=== PATIENT | male | born 1980 | race Caucasian/White ===

== ENCOUNTER 2020-11-29 08:07 | Outpatient (RCR) | payer OTHER, SELFPAY | END 2021-01-22 23:59 | LOC: IMMUN 08:07 | PROVIDERS: Referring Provider Family Medicine; Visit Provider Family Medicine | DX: Z23 Encounter for immunization (principal) | CPT/HCPCS: 0001A; 0002A; 91300 ==

== ENCOUNTER 2023-01-13 10:01 | Emergency (ER) | payer BC, SELFPAY ==
[2023-01-13 10:02] VITALS: BP 166/118; PULSE 87; RESP 14; TEMP 36.3; O2SAT 97
[2023-01-13 10:03] VITALS: BMI 35.2
--- NOTE | 2023-01-13 10:14 | CT_ITS ---
EXAM: CT ABDOMEN AND PELVIS WITHOUT INTRAVENOUS CONTRAST CLINICAL INDICATION: Left lower quadrant abdominal pain. TECHNIQUE: Helically acquired images were obtained of the abdomen and pelvis without intravenous contrast. This CT exam was performed using one or more of the following dose reduction techniques: automated exposure control, adjustment of the mA and/or kV according to patient size, and/or use of iterative reconstruction technique. RADIATION DOSE: CTDIvol = 22.72 mGy, DLP = 1209.02 mGy-cm COMPARISON: CT abdomen and pelvis without contrast. FINDINGS: LOWER THORAX: Unremarkable. Lung bases are clear. No cardiomegaly. No significant pericardial effusion. ABDOMEN: LIVER: Moderate diffuse fatty infiltration of the liver, previously mild. GALLBLADDER AND BILE DUCTS: Unremarkable. No calcified gallstones. No gallbladder distention or wall edema. No intra- or extrahepatic biliary ductal dilation. PANCREAS: Unremarkable. No focal cystic mass. SPLEEN: Unremarkable. Normal size without focal cystic or solid mass. ADRENALS: Unremarkable. No nodules. KIDNEYS AND URETERS: 2 mm nonobstructing stone in the left lower renal pole is unchanged. Normal kidneys. STOMACH AND BOWEL: with haziness of the posterior pericolic fat consistent with mild acute diverticulitis. Few diverticula in the sigmoid colon in the left lower abdomen/upper pelvis. No stomach or bowel distention. PELVIS: APPENDIX: Normal. BLADDER: Unremarkable. REPRODUCTIVE: Unremarkable as visualized. No mass. ABDOMEN and PELVIS: INTRAPERITONEAL SPACE: Unremarkable. No ascites or other fluid collection. No free air. BONES/JOINTS: Unremarkable. No suspicious lytic or blastic abnormality. SOFT TISSUES: Unremarkable. No discrete abdominal or pelvic wall hernia. VASCULATURE: Unremarkable. Abdominal aorta is non-dilated. LYMPH NODES: Unremarkable. No enlarged lymph nodes. CT/Abdomen/Pelvis without Cont IMPRESSION: 1. Mild acute diverticulitis of the sigmoid colon in the left lower abdomen/upper pelvis. 2. 2 mm nonobstructing stone in the left lower renal pole is unchanged. 3. Moderate hepatic steatosis, previously mild. Electronically Signed: Jaylen Santiago MD at 12:03 EDT ,
--- NOTE | 2023-01-13 10:14 | ED.VIS.GI ---
HPI HPI - GI History of Present Illness Chief Complaint: Abd Pain Detail of Chief Complaint: Abdominal pain Informant: patient Abdominal Pain/Flank Pain Current Severity: 01/24 Narrative Narrative: Patient presents to the emergency department complaint of abdominal pain that started yesterday. Patient rates it about a 6 out of 10 and in all of the left lower quadrant. Pain worse with movement. Patient tells me that about 7 years ago he had an episode of diverticulitis. He has never had a kidney stone. No history of colonoscopy. Patient states he has had some nausea and vomiting this morning and a few episodes of diarrhea over the last 2 days. He denies blood in his stool or black tarry stool. Patient denies urinary symptoms. Prior similar symptoms: Yes PFSH [facility] Medical History (Updated 01/13/23 @ 12:[address] Ximena Garcia DO) Diverticula of intestine Home Medications ciprofloxacin HCl 500 mg tablet 500 mg PO BID ##20 07/18/16 [Rx Last Taken Unknown] metronidazole 500 mg tablet 500 mg PO Q8 #30 tabs 07/18/16 [Rx Last Taken Unknown] oxycodone-acetaminophen 5 mg-325 mg tablet 1 - 2 tab PO Q4H PRN PRN Pain #20 tabs 07/18/16 [Rx Last Taken Unknown] ciprofloxacin HCl 500 mg tablet 500 mg PO BID #20 TABLETS 01/13/23 [Rx Last Taken Unknown] hydrocodone-acetaminophen 5-325mg 5mg-325mg 1 tab PO Q4H PRN PRN Pain 2 days #10 TABLETS 01/13/23 [Rx Last Taken Unknown] metronidazole 500 mg tablet 500 mg PO Q8H #30 tabs 01/13/23 [Rx Last Taken Unknown] Allergy/AdvReac Type Severity Reaction Status Date / Time No Known Allergies Allergy Verified 09/24/15 14:47 Social History Smoking Status: Never smoker ROS ROS ED Review of Systems ROS Unobtainable: other Constitutional Constitutional ED: Reports lethargy; Denies chills, fever(s), sweats or weight loss Eyes Eyes: Denies blurry vision, change in vision or diplopia ENT ENT ED: Denies rhinorrhea or sore throat Cardiovascular Cardiovascular: Denies chest pain, orthopnea or racing heartbeat Respiratory/Chest Respiratory/Chest: Denies cough, dyspnea, dyspnea on exertion, orthopnea or sputum Gastrointestinal Gastrointestinal: Reports abdominal pain, diarrhea, nausea and vomiting Genitourinary Genitourinary ED: Denies dysuria, hematuria or urinary frequency Musculoskeletal Musculoskeletal: Denies arthralgias, back pain, myalgias or neck pain Integumentary Denies abscess, Abrasions or rash Neurologic Neurologic: Denies headache(s) or weakness Psychiatric Psychiatric: Denies anxiety, depression or suicidal thoughts Endocrine Endocrinology: Denies polydipsia, polyphagia or polyuria Hematologic/Lymphatic Hematologic/Lymphatic: Denies easy bleeding, easy bruising or lymphadenopathy Allergic/Immunologic Allergic/Immunologic ED: Denies mouth swelling, tongue swelling or urticaria EXAM Physical Exam Const Vital Signs: 01/13/23 10:02 Temperature 97.4 F L Temperature Source Temporal Pulse Rate 87 Respiratory Rate 14 Blood Pressure 166/118 H Blood Pressure Mean 134 Pulse Ox 97 Oxygen Delivery Method Room Air Positive well nourished and well developed General Appearance ED: well developed and NAD HEENT Reports TM's clear and moist mucous membranes normocephalic and atraumatic; Negative for trauma or tenderness Tympanic Membrane ED: Yes TM's clear Eyes PERRL and EOMs intact bilaterally General Eye ED: Negative for pale conjunctiva or scleral icterus Neck no lymphadenopathy, supple and no JVD General: Negative for tenderness Chest Wall inspection of chest normal and palpation of chest normal Chest: Negative for tenderness Resp normal respiratory effort and clear to auscultation bilaterally Effort and Inspection: Negative for respiratory distress or pain with movement Auscultation: Negative for rhonchi, wheezes or diminished lung sounds Cardio regular rate, regular rhythm, S1 normal heart sound, S2 normal heart sound and no murmurs Peripheral Pulses: pulses 2+ throughout GI normal to inspection, nondistended, normoactive bowel sounds, soft to palpation, non-distended and no masses GI Narrative: Tenderness to palpation over left lower quadrant with some guarding. There is no rebound, rigidity, or. Signs. No mass palpated. Back/Spine no CVA tenderness and no thoracic nor lumbar tenderness Extremity normal to inspection General Extremety ED: Negative for edema General Extremity: Negative for edema Neuro oriented x3, CN's II-XII intact bilaterally, no sensory deficits noted and gait normal Sensorium / Orientation: awake, alert, oriented to person, oriented to place and oriented to time Motor Exam: strength 5/5 throughout and strength abnormal Psych mental status grossly normal Skin no rashes or lesions noted and no wounds MDM MDM MDM Narrative Medical decision making narrative: Patient presents with left lower quadrant abdominal pain that is similar to when he had diverticulitis 7 years ago. Patient had an IV line established. Initially he did not want a thing for pain but then changed his mind and he was given 4 mg of morphine 4 mg Zofran. CBC with differential showed a normal white count of 9.6 with a hemoglobin of 14.6. Lactate was normal at 1.3. Chemistries were normal. Urinalysis normal. CT scan of the abdomen pelvis without contrast showed uncomplicated sigmoid diverticulitis. Patient was started on Cipro and Flagyl p.o. He will be given a prescription for Cipro and Flagyl and [place] for pain. Patient will be referred to general surgery for follow-up within the next 3 to 5 days. Patient also will be given a referral to GI. Patient advised to return if worsening pain, fever, bloody stools, or condition should worsen anyway. Lab Data Attestation: I reviewed the patient's lab results. Labs: Laboratory Results - last 24 hr 01/13/23 01/13/23 01/13/23 11:15 11:15 11:15 WBC 9.6 RBC 4.50 L Hgb 14.6 Hct 43.1 MCV 95.8 H MCH 32.4 H MCHC 33.9 RDW Std Deviation 39.9 RDW Coeff of Jamar 11.4 L Plt Count 167 MPV 11.0 Immature Gran % (Auto) 0.500 Neut % (Auto) 81.4 H Lymph % (Auto) 10.9 L [place] % (Auto) 6.3 Eos % (Auto) 0.7 Baso % (Auto) 0.2 Absolute Neuts (auto) 7.8 H Absolute Lymphs (auto) 1.05 Nucleated RBC % 0 Sodium 137 Potassium 4.3 Chloride 103 Carbon Dioxide 26.0 Anion Gap 8 BUN 11 Creatinine 0.99 Est GFR (MDRD) Af Amer 107 Est GFR (MDRD) Non-Af 88 BUN/Creatinine Ratio 11.1 Glucose 116 H Lactic Acid 1.3 Calcium 9.0 Urine Color Urine Clarity Urine pH Ur Specific [place] Urine Protein Urine Glucose (UA) Urine Ketones Urine Occult Blood Urine Nitrite Urine Bilirubin Urine Urobilinogen Ur Leukocyte Esterase Urine RBC Urine WBC Ur Squamous Epith Cells Urine Bacteria Urine Mucus 01/13/23 11:30 WBC RBC Hgb Hct MCV MCH MCHC RDW Std Deviation RDW Coeff of Jamar Plt Count MPV Immature Gran % (Auto) Neut % (Auto) Lymph % (Auto) [place] % (Auto) Eos % (Auto) Baso % (Auto) Absolute Neuts (auto) Absolute Lymphs (auto) Nucleated RBC % Sodium Potassium Chloride Carbon Dioxide Anion Gap BUN Creatinine Est GFR (MDRD) Af Amer Est GFR (MDRD) Non-Af BUN/Creatinine Ratio Glucose Lactic Acid Calcium Urine Color Yellow Urine Clarity Clear Urine pH 6.0 Ur Specific [place] 1.015 Urine Protein Negative Urine Glucose (UA) Normal Urine Ketones Negative Urine Occult Blood Negative Urine Nitrite Negative Urine Bilirubin Negative Urine Urobilinogen Normal Ur Leukocyte Esterase Negative Urine RBC 0 SEEN Urine WBC 0 SEEN Ur Squamous Epith Cells 0 SEEN Urine Bacteria 0 SEEN Urine Mucus 0 SEEN Radiography Diagnostic Testing: Clinical Impression(s) from Imaging Studies Abdomen/Pelvis CT 01/13/23 10:14 IMPRESSION: 1. Mild acute diverticulitis of the sigmoid colon in the left lower abdomen/upper pelvis. 2. 2 mm nonobstructing stone in the left lower renal pole is unchanged. 3. Moderate hepatic steatosis, previously mild. Electronically Signed: Jaylen Santiago MD at 12:03 EDT , Discharge Plan Triage Chief Complaint: Abd Pain ED Provider: Ximena Garcia Dx/Rx/DC Orders Clinical Impression: Acute diverticulitis Prescriptions: New ciprofloxacin HCl [ciprofloxacin HCl] 500 mg tablet 500 mg PO BID Qty: 20 0RF metronidazole 500 mg tablet 500 mg PO Q8H Qty: 30 0RF hydrocodone-acetaminophen [hydrocodone-acetaminophen] 5-325 mg tablet 1 tab PO Q4H PRN PRN (Reason: Pain) 2 Days Qty: 10 0RF No Action metronidazole 500 MG tablet 500 mg PO Q8 Qty: 30 0RF ciprofloxacin HCl 500 MG tablet 500 mg PO BID Qty: 20 0RF oxycodone-acetaminophen 1 TABLET tablet 1 - 2 tab PO Q4H PRN PRN (Reason: Pain) Qty: 20 0RF Primary Care Provider: Care Physician,No Primary Referrals: Tera Castro MD [Med Staff - Active Staff] - 3-5 Days Juan Chaidez DO [Med Staff - Active Staff] - 3-5 Days Care Physician,No Primary [Primary Care Provider] - Disposition Disposition: Home, Self Care
[2023-01-13 11:22] LABS: Absolute Lymphocyte Count 1.05 X10^3/uL (0.83-4.51); Absolute Neutrophil Count 7.8 X10^3/uL (2.0-7.7); Basophil# 0.02 X10^3/uL; Basophil% 0.2 % (0-1); Eosinophil# 0.07 X10^3/uL; Eosinophils% 0.7 % (0-5); Hematocrit 43.1 % (40-54); Hemoglobin 14.6 g/dL (13.0-16.5); Lymphocyte # 1.05 X10^3/ul (0.83-4.51); Lymphocyte % 10.9 % (19-41); Mean Corp Hgb Conc 33.9 g/dL (32-36); Mean Corpuscular Hgb 32.4 pg (27.0-32.0); Mean Corpuscular Volume 95.8 fL (80-94); Monocyte# 0.61 X10^3/uL; Monocyte% 6.3 % (0-10); NRBC Flagged by Analyzer 0 % (0-5); Neutrophil # 7.83 X10^3/uL (2.7-7.7); Neutrophil % 81.4 % (47-70); Platelet Count 167 K/mm3 (150-450); RBC Distribution Width CV 11.4 % (11.6-14.6); RBC Distribution Width SD 39.9 fl (35.1-43.9); White Blood Count 9.6 K/mm3 (4.4-11.0)
[2023-01-13 11:33] LABS: Anion Gap 8 (5-15); BUN 11 mg/dL (7-18); BUN/Creat Ratio 11.1 RATIO (10-20); Chloride 103 mmol/L (98-107); Creatinine, Serum 0.99 mg/dL (0.70-1.30); EST Glomerular Filtration Rate 88 mL/min (>60); Est Glom Filt Rate - Afr Amer 107 mL/min (>60); Glucose 116 mg/dL (74-106); Potassium 4.3 mmol/L (3.5-5.1); Sodium Level 137 mmol/L (136-145)
[2023-01-13] MEDS: 0.9% Normal Saline 1,000 ML 125 ML IV (11:33)
[2023-01-13] MEDS: Ondansetron 4 MG/2 ML Vial IV (11:34)
[2023-01-13] MEDS: Morphine 4 MG/ML Syringe IV (11:34)
[2023-01-13 11:45] LABS: Bacteria 0 SEEN /hpf (None Seen); Mucous, Urine 0 SEEN /hpf (<or=2+); Red Blood Cells-Urine 0 SEEN /hpf (0-5); Squamous Epithelial Cells - UA 0 SEEN /hpf (0-5); White Blood Cells 0 SEEN /hpf (0-5)
[2023-01-13 11:51] LABS: Lactic Acid 1.3 mmol/L (0.4-1.9)
[2023-01-13 11:51] LABS: Color, Urine Yellow (Yellow); Glucose, Dipstick Normal (Normal); Ketone-Dipstick Negative (Negative); Leukocyte Esterase-Dipstick Negative /ul (Negative); Nitrite-Dipstick Negative (Negative); Occult Blood-Urine Negative /ul (Negative); Protein-Dipstick Negative (Negative); Specific Gravity, Urine 1.015 (1.002-1.030); Urine Bilirubin Dipstick Negative (Negative); Urine Clarity Clear (Clear); Urine Urobilinogen Normal (Normal)
--- NOTE | 2023-01-13 11:59 | CM.ED ---
Social Work Note Referral Source: case find Referral Reason: no PCP SW met with patient and introduced herself and role as [facility] Foster Parent. Patient lying on hospital bed and agreeable to speak with SW. SW inquired about patient's insurance and current PCP. Patient verified insurance and reports no current PCP. SW provided patient with a list of local PCPs in network with patient's insurance and accepting new patients. Patient was receptive towards list and voiced no other needs. SW remains available if needs arise. Nafisa Zepeda MSW, JUDI
[2023-01-13 12:47] VITALS: BP 168/70; PULSE 72; RESP 16; O2SAT 99
== END 2023-01-13 12:50 | disposition home or self-care (01) ==
PROVIDERS: Emergency Provider Emergency Medicine; Visit Provider Emergency Medicine
DX: K57.92 Diverticulitis of intestine, part unspecified, without perforation or abscess without bleeding (principal)
CPT/HCPCS: 74176; 80048; 81001; 83605; 85025; 99282; J7030; A4216; J2405

== ENCOUNTER 2023-12-01 09:33 | Emergency (ER) | payer BC, SELFPAY ==
[2023-12-01 09:34] VITALS: BP 132/85; PULSE 90; RESP 18; TEMP 36.6; O2SAT 96
[2023-12-01 09:46] VITALS: BMI 35.0
--- NOTE | 2023-12-01 09:47 | CT_ITS ---
STUDY: CT ABDOMEN AND PELVIS WITH CONTRAST REASON FOR EXAM: Male, 42 years old. LLQ abd pain. History of prior diverticulitis. RADIATION DOSAGE (If Supplied By Facility): CTDIvol = ( 16.83 ) mGy, DLP = ( 1387.10 ) mGycm TECHNIQUE: Transaxial images were obtained from the dome of the diaphragm to the symphysis pubis without oral contrast. IV 100mL Isovue-300 was administered. Sagittal and coronal images were reconstructed. Individualized dose optimization techniques were used for this CT. COMPARISON: Comparison is made with prior examination January 13, 2023. FINDINGS: The visualized lung bases are unremarkable. The visualized portions of the heart are within normal limits. There is decreased attenuation of the liver consistent with steatosis. Normal gallbladder and extrahepatic biliary system. Normal spleen. Normal pancreas. Normal bilateral adrenal glands. Normal right kidney. Stable punctate nonobstructive calculus in the lower pole calyx of the left kidney Normal visualized stomach. Normal small intestine. There is diverticulosis, with thickening of the colon wall, and pericolonic inflammation changes consistent with acute diverticulitis. The appendix is visualized and appears normal. There is minimal atherosclerotic calcification of the abdominal aorta, without a demonstrated aneurysm. Normal inferior vena cava. Normal retroperitoneum. Normal urinary bladder. Focal calcifications seen at the base of the penis. Small bilateral inguinal hernias containing fat. Normal osseous structures. CT/Abdomen/Pelvis W IV Cont ONLY IMPRESSION: Findings in keeping with a mild degree of sigmoid diverticulitis. Diffuse fatty infiltration of the liver. Stable punctate nonobstructive calculus in the lower pole calyx of the left kidney. Electronically Signed: Nito Morales MD at 10:39 EDT ,
--- NOTE | 2023-12-01 09:47 | ED.VIS.GI ---
HPI HPI - GI History of Present Illness Chief Complaint: Abd Pain Detail of Chief Complaint: 3-day history of left lower quadrant abdominal pain. Informant: patient Abdominal Pain/Flank Pain Onset: Days Context: Gradual Onset Timing: Continuous Quality: Aching Location: LLQ Current Severity: Mild Maximum Severity: Moderate Worsened by: Nothing Relieved by: Nothing Nausea/Vomiting/Emesis GI Symptom: Negative for Nausea or Vomiting Diarrhea/Melena/Hematochezia GI Symptom: Negative for Diarrhea, Melena or Hematochezia Associated Symptoms Associated Symptoms: Negative for Dysuria, Frequency, Hematuria or Urgency Narrative Narrative: 42-year-old male history of diverticulitis. Since Thursday he has developed left lower quadrant abdominal pain and its gotten worse. No vomiting or diarrhea. No fever. No dysuria. Last bowel movement yesterday morning. No melena. Only prior abdominal surgery was a hernia repair. Last episode of diverticulitis was December of last year. He denies any fever. Prior similar symptoms: Yes Recent Illness/Hospitalization: No PFSH PFSH Medical History Diverticula of intestine Home Medications ibuprofen 600 mg tablet 600 mg PO ONCE 01/20/23 [History Last Taken Unknown] amoxicillin 875 mg-potassium clavulanate 125 mg tablet 1 tab PO BID 10 days #20 tabs 12/01/23 [Rx Last Taken Unknown] oxycodone-acetaminophen 5 mg-325 mg tablet (Percocet) 1 tab PO Q4H PRN pain 4 days #14 tabs 12/01/23 [Rx Last Taken Unknown] Allergy/AdvReac Type Severity Reaction Status Date / Time No Known Allergies Allergy Verified 12/01/23 09:36 Family History Mother Diverticular disease Uncle Diverticular disease Other Breast cancer Diabetes Surgical History H/O hernia repair Social History Smoking Status: Never smoker ROS ROS ED ROS Narrative Left lower quadrant abdominal pain. Review of Systems ROS Unobtainable: Denies due to encephalopathy Constitutional Constitutional ED: Denies chills or fever(s) ENT ENT ED: Denies ear pain Cardiovascular Cardiovascular: Denies chest pain Respiratory/Chest Respiratory/Chest: Denies cough or dyspnea Gastrointestinal Gastrointestinal: Reports abdominal pain; Denies constipation, diarrhea, melena, nausea or vomiting Genitourinary Genitourinary ED: Denies dysuria or hematuria Musculoskeletal Musculoskeletal: Denies arthralgias Integumentary Denies abscess or Abrasions Neurologic Neurologic: Denies headache(s) Psychiatric Psychiatric: Denies anxiety or depression Endocrine Endocrinology: Denies polydipsia Hematologic/Lymphatic Hematologic/Lymphatic: Denies easy bleeding or easy bruising Allergic/Immunologic Allergic/Immunologic ED: Denies mouth swelling, tongue swelling or urticaria EXAM Physical Exam Narrative Exam Narrative: Well-appearing 42-year-old male. Vital signs stable afebrile. HEENT exam unremarkable. Mytrex membranes. Neck nontender no lymphadenopathy. Lungs clear to auscultation bilaterally. Heart regular rhythm rate about 90 no murmur. Chest wall and ribs nontender. Abdomen soft, nondistended, normal bowel sounds without peritoneal signs. Only tenderness is left lower quadrant. No hernia or mass. Right upper and right lower quadrant unremarkable. No obstruction. No pulsatile mass. Moving all 4 extremities. Nontender no edema. Back nontender. Neurologically is awake and alert with no focal motor deficits. Const Vital Signs: 12/01/23 09:34 Temperature 97.9 F Temperature Source Temporal Pulse Rate 90 Respiratory Rate 18 Blood Pressure 132/85 H Blood Pressure Mean 100 Pulse Ox 96 Oxygen Delivery Method Room Air Positive well nourished and well developed; Negative for cachectic, contractures or unkempt General Appearance ED: well developed and NAD; Negative for unkempt, cachectic, contractures or pallor Nutritional Appearance: Negative for cachectic HEENT Reports moist mucous membranes; Denies dry mucous membranes normocephalic and atraumatic; Negative for trauma or tenderness Mouth ED: No dry mucous membranes Mouth: No dry mucous membranes Eyes PERRL and EOMs intact bilaterally General Eye ED: Negative for pale conjunctiva or scleral icterus Neck no lymphadenopathy, supple and no JVD General: Negative for tenderness Carotids: Negative for other Lymph Lymphatic: Negative for other Resp normal respiratory effort and clear to auscultation bilaterally Effort and Inspection: Negative for respiratory distress Auscultation: Negative for rales, rhonchi, wheezes or diminished lung sounds Cardio regular rate, regular rhythm, S1 normal heart sound, S2 normal heart sound and no murmurs Rate: Negative for bradycardia or tachycardic Rhythm: Negative for abnormal rhythm GI non-distended and no masses; Negative for non-tender GI Narrative: Tender left lower quadrant only. Inspection: Negative for abdominal distention Auscultation: normoactive bowel sounds Palpation: soft and tender; Negative for guarding or rebound tenderness present Back/Spine no CVA tenderness General Back: Negative for CVA tenderness Cervical Spine: Negative for cervical spine tenderness Thoracic Spine / Upper Back: Negative for thoracic spinal tenderness Lumbar Spine / Lower Back: Negative for lumbar spinal tenderness Coccyx: Negative for other Extremity General Extremety ED: Negative for edema or tenderness General Extremity: Negative for edema Neuro CN's II-XII intact bilaterally and moves all extremities Sensorium / Orientation: alert, oriented to person, oriented to place and oriented to time; Negative for orientation impaired, confused, lethargic or stuporous Motor Exam: strength 5/5 throughout; Negative for general weakness or strength abnormal Psych mental status grossly normal and thought process normal Appearance: Negative for unkempt Attitude: No agitated Mood & Affect: Negative for depressed, anxious or tearful Skin no wounds General Skin Exam: Negative for jaundice or pallor Lesions: no lesions Rashes: no rashes MDM MDM MDM Narrative Medical decision making narrative: 42-year-old male with history diverticulitis last flare about a year ago. Plan left lower quadrant abdominal pain for the last 3 days. CAT scan labs are pending. He did not want any pain medication ending for nausea. Repeat exam unchanged at 11 AM. We discussed his test results. Will start on Augmentin 875 twice daily for 10 days. Follow-up with his primary care physician to ensure he is improving and to make sure they do not have to extend the length of time of the treatment with antibiotics. Return if worse. Also be written for Percocet for pain. Both prescriptions to be sent to his pharmacy. First dose antibiotic given here. History & Record Review Discussion w/independent historian: Patient and Family Additional record(s) reviewed:: Prior inpatient record, Prior outpatient record, Prior ED visit and Prior labs Lab Data Attestation: I reviewed the patient's lab results. Lab results narrative: CBC shows a white count 11. H&H 14 and 42. Platelets 196. Electrolytes show sodium 135. Gap 3. BUN and creatinine are 19 and 0.9. Glucose 124. CAT scan of the abdomen shows mild sigmoid diverticulitis. Labs: Laboratory Results - last 24 hr 12/01/23 10:00 WBC 11.0 RBC 4.43 L Hgb 14.7 Hct 42.8 MCV 96.6 H MCH 33.2 H MCHC 34.3 RDW Std Deviation 41.0 RDW Coeff of Jamar 11.5 L Plt Count 196 MPV 10.4 Immature Gran % (Auto) 0.200 Neut % (Auto) 80.6 H Lymph % (Auto) 10.3 L [place] % (Auto) 7.8 Eos % (Auto) 0.7 Baso % (Auto) 0.4 Absolute Neuts (auto) 8.9 H Absolute Lymphs (auto) 1.14 Nucleated RBC % 0 Sodium 135 L Potassium 3.8 Chloride 102 Carbon Dioxide 30.0 Anion Gap 3 L BUN 19 H Creatinine 0.97 Estim Creat Clear Calc 131.15 Est GFR (MDRD) Af Amer 109 Est GFR (MDRD) Non-Af 90 BUN/Creatinine Ratio 19.6 Glucose 124 H Calcium 10.5 H Radiography Diagnostic Testing: Clinical Impression(s) from Imaging Studies Abdomen/Pelvis CT 12/01/23 09:47 IMPRESSION: Findings in keeping with a mild degree of sigmoid diverticulitis. Diffuse fatty infiltration of the liver. Stable punctate nonobstructive calculus in the lower pole calyx of the left kidney. Electronically Signed: Nito Morales MD at 10:39 EDT , Discharge Plan Triage Chief Complaint: Abd Pain ED Provider: Phong Fuentes Dx/Rx/DC Orders Clinical Impression: Abdominal pain, Diverticulitis of sigmoid colon Instructions: ED Diverticulitis Prescriptions: New amoxicillin-pot clavulanate 875-125 mg tablet 1 tab PO BID 10 Days Qty: 20 0RF oxycodone-acetaminophen [Percocet] 5-325 mg tablet 1 tab PO Q4H PRN (Reason: pain) 4 Days Qty: 14 0RF No Action ibuprofen 600 mg tablet 600 mg PO ONCE Primary Care Provider: Kimi Head Referrals: Kimi Head, [employer] [Primary Care Provider] - 1 Week Activity Restrictions/Additional Instructions: Follow-up with your primary care provider to ensure you are improving in about a week. Sometimes they have to extend antibiotic treatment for 2 to 3 weeks. Percocet for pain. Do not drive or drink alcohol. Make sure you are drinking plenty of water, fruits, vegetable and fiber and possibly even a stool softener to prevent constipation. The antibiotic Augmentin 1 pill twice a day for the next 10 days. Disposition Disposition: Home, Self Care
[2023-12-01 10:18] LABS: Absolute Lymphocyte Count 1.14 X10^3/uL (0.83-4.51); Absolute Neutrophil Count 8.9 X10^3/uL (2.0-7.7); Basophil# 0.04 X10^3/uL; Basophil% 0.4 % (0-1); Eosinophil# 0.08 X10^3/uL; Eosinophils% 0.7 % (0-5); Hematocrit 42.8 % (40-54); Hemoglobin 14.7 g/dL (13.0-16.5); Lymphocyte # 1.14 X10^3/ul (0.83-4.51); Lymphocyte % 10.3 % (19-41); Mean Corp Hgb Conc 34.3 g/dL (32-36); Mean Corpuscular Hgb 33.2 pg (27.0-32.0); Mean Corpuscular Volume 96.6 fL (80-94); Mean Platelet Vol. 10.4 fl (6.2-12.0); Monocyte# 0.86 X10^3/uL; Monocyte% 7.8 % (0-10); NRBC Flagged by Analyzer 0 % (0-5); Neutrophil % 80.6 % (47-70); Platelet Count 196 K/mm3 (150-450); RBC Distribution Width CV 11.5 % (11.6-14.6); Red Blood Count 4.43 M/mm3 (4.6-6.2)
[2023-12-01 10:27] LABS: Anion Gap 3 (5-15); BUN 19 mg/dL (7-18); BUN/Creat Ratio 19.6 RATIO (10-20); Calcium,Total 10.5 mg/dL (8.5-10.1); Chloride 102 mmol/L (98-107); Creatinine, Serum 0.97 mg/dL (0.70-1.30); EST Glomerular Filtration Rate 90 mL/min (>60); Est Glom Filt Rate - Afr Amer 109 mL/min (>60); Estimated Creatinine Clearance 131.15 ml/min; Glucose 124 mg/dL (74-106); Potassium 3.8 mmol/L (3.5-5.1); Sodium Level 135 mmol/L (136-145)
[2023-12-01 11:33] VITALS: BP 117/52; PULSE 64; RESP 18; O2SAT 97
[2023-12-01] MEDS: Amox/Clavulanate 875 MG Tablet PO (11:38)
== END 2023-12-01 11:40 | disposition home or self-care (01) ==
PROVIDERS: Emergency Provider Emergency Medicine; PCP Nurse Practitioner Family; Visit Provider Emergency Medicine
DX: K57.32 Diverticulitis of large intestine without perforation or abscess without bleeding (principal)
CPT/HCPCS: 74177; 80048; 85025; 99283; Q9967; A4216

== ENCOUNTER 2023-12-03 17:44 | Emergency (ER) | payer BC, SELFPAY ==
[2023-12-03 17:45] VITALS: BP 113/75; PULSE 94; RESP 14; TEMP 36.1; O2SAT 95; BMI 34.9
--- NOTE | 2023-12-03 19:17 | EDS_ITS ---
HPI <CHACE Bradley - Last Filed: 12/03/23 20:55> History of Present Illness Chief Complaint: Nausea/Vomiting/Diarrhea Narrative Narrative: 42-year-old male developed LLQ abdominal pain on 11/29 and was seen in the ED on 11/30 and had labs and a CT scan showing sigmoid diverticulitis. He was prescribed Augmentin and Percocet. Yesterday he started vomiting. He can keep down the medication for a brief period but anytime he tries to eat or drink he vomits. He has not had a bowel movement over the last 2 days. He took 3 stool softeners this morning. He states he still had some abdominal pain but it is lessened since he was here recently. He has no urinary issues. No fever or chills. PFSH <CHACE Bradley - Last Filed: 12/03/23 20:55> PFSH Medical History Diverticula of intestine Home Medications ibuprofen 600 mg tablet 600 mg PO ONCE 01/20/23 [History Last Taken Unknown] amoxicillin 875 mg-potassium clavulanate 125 mg tablet 1 tab PO BID 10 days #20 tabs 12/01/23 [Rx Last Taken Unknown] oxycodone-acetaminophen 5 mg-325 mg tablet (Percocet) 1 tab PO Q4H PRN pain 4 days #14 tabs 12/01/23 [Rx Last Taken Unknown] ondansetron 4 mg disintegrating tablet 4 mg PO Q6H PRN nausea and vomiting #12 tabs 12/03/23 [Rx Last Taken Unknown] Allergy/AdvReac Type Severity Reaction Status Date / Time No Known Allergies Allergy Verified 12/03/23 17:47 Family History Mother Diverticular disease Uncle Diverticular disease Other Breast cancer Diabetes Surgical History H/O hernia repair Social History Smoking Status: Never smoker ROS <CHACE Bradley - Last Filed: 12/03/23 20:55> ROS ED ROS Narrative Constitutional: Negative for fever, chills, malaise. CVS: Negative for chest pain. Respiratory: Negative for shortness of breatha. GI: Positive for abdominal pain, nausea, vomiting, constipation. : Negative for dysuria. EXAM <CHACE Bradley - Last Filed: 12/03/23 20:55> Physical Exam Narrative Exam Narrative: CONST: Patient sitting in no acute distress. EYES: Normal inspection. NECK: Normal inspection. RESP: No respiratory distress, CTAB. CVS: Regular rate and rhythm, no murmur, no gallop. ABD: Soft with LLQ tenderness, no guarding or rebound, nondistended. SKIN: Color normal, no rash, warm, dry, intact. EXTREMITIES: Normal appearance, no pedal edema. NEURO: Alert and answering questions appropriately. PSYCH: Normal affect. Const Vital Signs: 12/03/23 17:45 12/03/23 19:45 12/03/23 20:45 Temperature 97 F L 99.5 F H Temperature Source Temporal Oral Pulse Rate 94 72 70 Respiratory Rate 14 18 16 Blood Pressure 113/75 126/79 H 118/74 Blood Pressure Mean 87 94 88 Pulse Ox 95 97 95 Oxygen Delivery Method Room Air Room Air Room Air <Dr. Jose F Lacey MD - Last Filed: 12/03/23 22:26> Physical Exam Const Vital Signs: 12/03/23 17:45 12/03/23 19:45 12/03/23 20:45 Temperature 97 F L 99.5 F H Temperature Source Temporal Oral Pulse Rate 94 72 70 Respiratory Rate 14 18 16 Blood Pressure 113/75 126/79 H 118/74 Blood Pressure Mean 87 94 88 Pulse Ox 95 97 95 Oxygen Delivery Method Room Air Room Air Room Air MDM <CHACE Bradley - Last Filed: 12/03/23 20:55> [facility] Narrative Medical decision making narrative: History gathered from: Patient and family member Differential: Dehydration, BRIAN, worsening diverticulitis Patient has acute sigmoid diverticulitis and is taking Augmentin over the last 2 days. Yesterday developed nausea and vomiting. He has not had any increase in abdominal pain. He was constipated x 2 days likely from Percocet. He appears well and nontoxic and is afebrile and hemodynamically stable. He has mild left lower quadrant tenderness but no peritoneal signs. Labs show normal white count, sodium 131, BUN 29, creatinine 1.20. He was treated with IV fluids and Zofran and is feeling much better and tolerating drinking water. He does not have increased abdominal pain and has serial benign exams and leukocytosis has gone down since starting antibiotics so do not think he warrants a repeat scan. His 2 days of constipation is likely from Percocet and I discussed he needs to use Metamucil and increase fluids. I prescribed Zofran for home. He was comfortable with this plan and discharged in stable condition. Lab Data Labs: Laboratory Results - last 24 hr 12/03/23 19:45 WBC 4.8 RBC 4.15 L Hgb 13.8 Hct 40.5 MCV 97.6 H MCH 33.3 H MCHC 34.1 RDW Std Deviation 40.5 RDW Coeff of Jamar 11.3 L Plt Count 159 MPV 10.6 Immature Gran % (Auto) 0.600 Neut % (Auto) 80.5 H Lymph % (Auto) 9.6 L [place] % (Auto) 8.1 Eos % (Auto) 1.0 Baso % (Auto) 0.2 Absolute Neuts (auto) 3.9 Absolute Lymphs (auto) 0.46 L Nucleated RBC % 0 Sodium 131 L Potassium 3.8 Chloride 97 L Carbon Dioxide 32.0 Anion Gap 2 L BUN 29 H Creatinine 1.20 Estim Creat Clear Calc 105.75 Est GFR (MDRD) Af Amer 85 Est GFR (MDRD) Non-Af 70 BUN/Creatinine Ratio 24.2 H Glucose 115 H Calcium 8.7 <Dr. Jose F Lacey MD - Last Filed: 12/03/23 22:26> [facility] MDM Narrative Medical decision making narrative: History gathered from: Patient and family member Differential: Dehydration, BRIAN, worsening diverticulitis Patient has acute sigmoid diverticulitis and is taking Augmentin over the last 2 days. Yesterday developed nausea and vomiting. He has not had any increase in abdominal pain. He was constipated x 2 days likely from Percocet. He appears well and nontoxic and is afebrile and hemodynamically stable. He has mild left lower quadrant tenderness but no peritoneal signs. Labs show normal white count , sodium 131, BUN 29, creatinine 1.20. He was treated with IV fluids and Zofran and is feeling much better and tolerating drinking water. He does not have increased abdominal pain and has serial benign exams and leukocytosis has gone down since starting antibiotics so do not think he warrants a repeat scan. His 2 days of constipation is likely from Percocet and I discussed he needs to use Metamucil and increase fluids. I prescribed Zofran for home. He was comfortable with this plan and discharged in stable condition. I have personally performed a face to face assessment of the patient and have reviewed the [place] Note. I performed a substantive portion of the visit including all aspects of the following. My melton findings include: History is patient 42-year-old male. Patient was recently admitted for diverticulitis. He was discharged home on Percocet and antibiotics. He has not been taking his stool softener or bulking agent. He presents with abdominal discomfort. He has not had a bowel movement 2 days. He denies fever or chills. He does endorse nausea and vomiting. He denies diarrhea. He denies blood or mucus in his stool. He denies hematemesis or coffee-ground emesis. stated she made him come in. He denies being bloated or distended. He denies decreased urine output. Exam is remarkable for a BMI of 35. Clinically appears dehydrated with dry mucosa. HEENT exam is unremarkable otherwise. Heart is regular. Rate is normal. There is no murmur, gallop or rub. Lungs are clear auscultation. Abdomen is prominent. There is no tympany to percussion. Bowel sounds are diminished. There is no peritoneal findings or guarding. Lower extremity exam is unremarkable. Medical Decision Making BMP was obtained to assess renal function and electrolytes. CBC to assess white count differential. Patient's workup was unremarkable. He was instructed to take Metamucil twice a day. He was instructed to increase the fiber in his diet. Other additions or changes: [None] Lab Data Attestation: I reviewed the patient's lab results. Lab results narrative: CBC and BMP are normal. Labs: Laboratory Results - last 24 hr 12/03/23 19:45 WBC 4.8 RBC 4.15 L Hgb 13.8 Hct 40.5 MCV 97.6 H MCH 33.3 H MCHC 34.1 RDW Std Deviation 40.5 RDW Coeff of Jamar 11.3 L Plt Count 159 MPV 10.6 Immature Gran % (Auto) 0.600 Neut % (Auto) 80.5 H Lymph % (Auto) 9.6 L [place] % (Auto) 8.1 Eos % (Auto) 1.0 Baso % (Auto) 0.2 Absolute Neuts (auto) 3.9 Absolute Lymphs (auto) 0.46 L Nucleated RBC % 0 Sodium 131 L Potassium 3.8 Chloride 97 L Carbon Dioxide 32.0 Anion Gap 2 L BUN 29 H Creatinine 1.20 Estim Creat Clear Calc 105.75 Est GFR (MDRD) Af Amer 85 Est GFR (MDRD) Non-Af 70 BUN/Creatinine Ratio 24.2 H Glucose 115 H Calcium 8.7 Discharge Plan Triage Chief Complaint: Nausea/Vomiting/Diarrhea ED Midlevel Provider: Marleen Cross ED Provider: Jose F Lacey Dx/Rx/DC Orders Clinical Impression: Diverticulitis, Nausea and vomiting Instructions: Diverticulitis Dc, ED Vomiting (Adult) Prescriptions: New ondansetron 4 mg tablet,disintegrating 4 mg PO Q6H PRN (Reason: nausea and vomiting) Qty: 12 0RF No Action ibuprofen 600 mg tablet 600 mg PO ONCE amoxicillin-pot clavulanate 875-125 mg tablet 1 tab PO BID 10 Days Qty: 20 0RF oxycodone-acetaminophen [Percocet] 5-325 mg tablet 1 tab PO Q4H PRN (Reason: pain) 4 Days Qty: 14 0RF Primary Care Provider: Kimi Head Referrals: Kimi Head, [facility] [Primary Care Provider] - Activity Restrictions/Additional Instructions: Take Zofran as needed for nausea and vomiting, continue antibiotics and pain meds. No Percocet does cause constipation and you need to take Metamucil or Miralax. Return if symptoms worsen. Disposition Disposition: Home, Self Care Discharge Date/Time: 12/03/23 21:57
[2023-12-03 19:45] VITALS: BP 126/79; PULSE 72; RESP 18; O2SAT 97
[2023-12-03 19:52] LABS: Absolute Lymphocyte Count 0.46 X10^3/uL (0.83-4.51); Absolute Neutrophil Count 3.9 X10^3/uL (2.0-7.7); Basophil# 0.01 X10^3/uL; Basophil% 0.2 % (0-1); Eosinophil# 0.05 X10^3/uL; Hematocrit 40.5 % (40-54); Hemoglobin 13.8 g/dL (13.0-16.5); Lymphocyte # 0.46 X10^3/ul (0.83-4.51); Lymphocyte % 9.6 % (19-41); Mean Corp Hgb Conc 34.1 g/dL (32-36); Mean Corpuscular Hgb 33.3 pg (27.0-32.0); Mean Corpuscular Volume 97.6 fL (80-94); Mean Platelet Vol. 10.6 fl (6.2-12.0); Monocyte# 0.39 X10^3/uL; Monocyte% 8.1 % (0-10); NRBC Flagged by Analyzer 0 % (0-5); Neutrophil # 3.86 X10^3/uL (2.7-7.7); Neutrophil % 80.5 % (47-70); POSITIVE DIFFERENTIAL YES; Platelet Count 159 K/mm3 (150-450); RBC Distribution Width CV 11.3 % (11.6-14.6); RBC Distribution Width SD 40.5 fl (35.1-43.9); Red Blood Count 4.15 M/mm3 (4.6-6.2); White Blood Count 4.8 K/mm3 (4.4-11.0)
[2023-12-03] MEDS: 0.9% Normal Saline (1000mL) 1,000 ML 999 ML IV (20:04)
[2023-12-03] MEDS: Ondansetron 4 MG/2 ML Vial IV (20:04)
[2023-12-03 20:06] LABS: Anion Gap 2 (5-15); BUN 29 mg/dL (7-18); BUN/Creat Ratio 24.2 RATIO (10-20); Calcium,Total 8.7 mg/dL (8.5-10.1); Chloride 97 mmol/L (98-107); EST Glomerular Filtration Rate 70 mL/min (>60); Est Glom Filt Rate - Afr Amer 85 mL/min (>60); Estimated Creatinine Clearance 105.75 ml/min; Glucose 115 mg/dL (74-106); Potassium 3.8 mmol/L (3.5-5.1); Sodium Level 131 mmol/L (136-145)
[2023-12-03 20:45] VITALS: BP 118/74; PULSE 70; RESP 16; TEMP 37.5; O2SAT 95
== END 2023-12-03 21:57 | disposition home or self-care (01) ==
PROVIDERS: Physician Assistant; Emergency Provider Emergency Medicine; PCP Nurse Practitioner Family; Visit Provider Emergency Medicine
DX: R11.2 Nausea with vomiting, unspecified (principal); K57.92 Diverticulitis of intestine, part unspecified, without perforation or abscess without bleeding
CPT/HCPCS: 80048; 85025; 99283; J7030; J2405